=== PATIENT | male | born 1950 | race Caucasian/White ===

== ENCOUNTER 2016-11-17 10:23 | Observation (INO) | payer OTHER ==
[~2016-11-17] VITALS: Ht 182.9 cm; Wt 96.2 kg
--- NOTE | 2016-11-19 08:55 | HP ---
ADMIT: 11/17/2016 RM/LOC: 408 [facility] MR#: [id number] [address] [address] [address] [place] [address] History and Physical SEX: M AGE: 65 : 1950 DATE OF SERVICE: CHIEF COMPLAINT: Chest pain. HISTORY OF PRESENT ILLNESS: A 65-year-old male, sent over by the [facility] since they were on diversion. He had chest pain, was given nitroglycerin there, he is not certain if it helped. By the time he got to our ER, his pain was gone. EKG showed right bundle-branch block. Initial enzymes were negative. He describes the chest pain as substernal, generally achy feeling, sometimes sharp in nature. It occurred at home, lasted about 45 minutes. He is being admitted at this time for chest pain to trend enzymes, to rule out acute coronary syndrome. He denies having any history of any coronary artery disease. He does state he has had 2 strokes, the last one was September of 2014. He was hospitalized in [facility] for a week. As far as the cause of stroke, he is not certain what was the cause of it, but they gave him a piece of paper, he presented the paper and it was an educational material of ischemic heart disease. Denies ever having had a heart catheterization or any heart attacks. As far as his chest pain, he said he has had some episodes on and off for last several months, much more minor, only lasted a minute or two. This one lasted for 45 minutes. It was associated with nausea, but no vomiting. He was not short of breath or diaphoretic with it. He states he is chronically short of breath. Significant risk factors include severe COPD, oxygen dependent and history of tobacco abuse. PAST MEDICAL HISTORY: He has had a gastroscopy, had chest tubes placed in 2013. Hospitalized last in 2014 at [facility] with strokes, he has had 2 strokes. He has been on long-term oxygen for COPD. He has a prior history of tobacco abuse. ALLERGIES: NONE. CURRENT MEDICATIONS: Include: 1. Albuterol DuoNeb nebulizer. 2. Fosamax 70 mg daily. 3. Lipitor 40 mg at bedtime. 4. Stool softener. 5. Budesonide inhaler. 6. Plavix 75 mg daily. 7. Diclofenac 25 mg b.i.d. p.r.n. 8. Diltiazem 180 mg one daily. 9. Neurontin 300 mg b.i.d. 10.Hydrocodone p.r.n. 11.Magnesium citrate p.r.n. 12.Milk of magnesia p.r.n. 13.Protonix 40 mg daily. 14.Potassium 20 mEq daily. ADMIT: 11/17/2016 RM/LOC: 408 [facility] MR#: [id number] [facility] [address] [address] [address] [place] [address] History and Physical SEX: M AGE: 65 : 1950 15.Prednisone intermittently for his COPD. 16.Flomax 0.4 mg daily. 17.Tiotropium 18 mcg capsule inhaled daily. FAMILY HISTORY: Noncontributory. SOCIAL HISTORY: He is retired. Prior history of tobacco abuse. OTHER MEDICAL ISSUES: Include history of chronic granulomatous pulmonary disease, no lung cancer. History of COPD, oxygen dependent. History of gastroesophageal reflux; hyperlipidemia; previous stroke, exact etiology of stroke not apparent at this time. REVIEW OF SYSTEMS: Negative other than noted above. PHYSICAL EXAM: GENERAL: 65-year-old male, appears older stated age. VITAL SIGNS: In the emergency room were stable. BP is 120/78, respiratory rate 22, temp 98.4, O2 saturation 94% on oxygen. HEENT: Eyes PERRLA. EOMs intact. TMs not seen. Throat is moist, not inflamed. NECK: Supple. No lymphadenopathy. LUNGS: Showed decreased breath sounds but no rales, rhonchi, or wheezes. No respiratory distress. No retractions. HEART: Regular rate. No murmur. Chest wall is nontender. ABDOMEN: Soft, organomegaly, or tenderness. : Rectal deferred. EXTREMITIES: No clubbing, cyanosis, or edema. LABORATORY DATA: Initial CBC and CMP are normal. Initial cardiac enzymes are normal. EKG shows right bundle-branch block. DIAGNOSTIC IMPRESSION: 1. Atypical chest pain, rule out coronary syndrome. 2. Chronic obstructive pulmonary disease, oxygen dependent. 3. 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 4. Osteoporosis. 5. Gastroesophageal reflux disease. 6. Tobacco abuse. PLAN: We will trend EKG, enzymes, place on telemetry monitoring. Henrry Ortega MD/ zhou JOB #: [id number] CC: Henrry Ortega, Attending Physician ADMIT: 11/17/2016 RM/LOC: 408 [facility] MR#: [id number] [facility] [address] [address] [address] [place] [address] History and Physical SEX: M AGE: 65 : 1950 [facility] Physician, Family Physician
[2016-11-20] MEDS ORDERED: ACCUNEB DP0.63 MG/3 IH (07:16)
[2016-11-20] MEDS ORDERED: PROVENTIL HFA6.7 GM IH (07:16)
[2016-11-20] MEDS ORDERED: FOSAMAX70 MG PO (07:17)
[2016-11-20] MEDS ORDERED: SYMBICORT80 MCG/6.9 IH (07:17)
[2016-11-20] MEDS ORDERED: LIPITOR DPS20 MG PO (07:17)
[2016-11-20] MEDS ORDERED: PLAVIX75 MG PO (07:18)
[2016-11-20] MEDS ORDERED: CALCIPOTRIENE120 G1 TP (07:18)
[2016-11-20] MEDS ORDERED: VITAMIN D-32000 UNI1 PO (07:18)
[2016-11-20] MEDS ORDERED: [UNRECOGNIZED DRUG - CODE] TP (07:19)
[2016-11-20] MEDS ORDERED: ZIPSOR25 MG PO (07:19)
[2016-11-20] MEDS ORDERED: SENOKOT S1 TAB PO (07:20)
[2016-11-20] MEDS ORDERED: NORCO 5-325 TA1 EACH PO ×2 (07:20)
[2016-11-20] MEDS ORDERED: NEURONTIN DPS300 MG PO (07:20)
[2016-11-20] MEDS ORDERED: PROTONIX40 MG PO (07:21)
[2016-11-20] MEDS ORDERED: POTASSIUM CHLO20 ME2 PO (07:21)
[2016-11-20] MEDS ORDERED: MILK OF MAGNESI10 ML PO (07:21)
[2016-11-20] MEDS ORDERED: FLOMAX DPS0.4 MG PO (07:22)
[2016-11-20] MEDS ORDERED: MAALOX DPS30 ML PO (07:22)
[2016-11-20] MEDS ORDERED: SPIRIVA18 MCG IH (07:22)
[2016-11-20] MEDS ORDERED: COLACE-DPS100 MG PO (07:22)
[2016-11-20] MEDS ORDERED: SENOKOT DPS8.6 MG PO (07:23)
[2016-11-20] MEDS ORDERED: TYLENOL DPS325 MG PO (07:23)
--- NOTE | 2016-11-20 08:22 | ER ---
ADMIT: 11/17/2016 RM/LOC: ER [facility] MR#: [id number] [address] [facility] [place], [place] [address] [address] K[address] [place] [address] Emergency Room Report SEX: M AGE: 65 : 1950 DATE: 11/17/2016 TIME: 1023 hours. Please refer to my T-sheet for complete H and P. HISTORY OF PRESENT ILLNESS: Briefly, the patient is a 65-year-old, sent from the [facility] for chest pain. He was over there, had left-sided severe chest pain. He has severe COPD, cardiac disease. He still smokes a pack a day. High cholesterol, high blood pressure, history of CVA. He is having no pain now, it only lasted a little until they gave him an aspirin. PHYSICAL EXAMINATION: VITAL SIGNS: Blood pressure 97/55, pulse 80, respirations 16, temp 98.1, sat 95% on 2 L. GENERAL: No acute distress. HEENT: Grossly normal. LUNGS: Slightly coarse with expiratory wheezes. Prolonged output. ABDOMEN: Soft. SKIN: No rash. EXTREMITIES: Grossly normal. NEUROLOGIC: Alert and oriented, nonfocal. EMERGENCY DEPARTMENT COURSE: EKG was sinus rhythm, rate 80, no changes. Chest x-ray showed large amount of blood, could not exclude a normal thorax. We did a CTA of the chest, revealed no PE, multiple blebs, and COPD. His CBC is normal except hemoglobin 13.9. Chemistries normal. Cardiac enzymes negative. He remained stable. Pain free. I talked to Dr. Ortega. We will admit to the hospital after the [facility] says they are on diversion and have no beds. ASSESSMENT: 1. Chest pain. 2. Chronic obstructive pulmonary disease. 3. Nicotine abuse. PLAN: Admit to the hospital. Enrique Rossi MD/ zhou JOB #: [id number] CC: Enrique Rossi MD, Attending Physician [facility] Physician, Family Physician
[2017-03-24] MEDS ORDERED: [UNRECOGNIZED DRUG - OTHER] TP (14:37)
[2017-03-24] MEDS ORDERED: LANOXIN125 MCG PO (14:37)
== END 2016-11-18 10:25 | disposition home or self-care (01) ==
LOC: ER 10:23 → 4PCU 12:30
PROVIDERS: ADMIT Family Medicine
DX: R07.89 Other chest pain (principal); J44.9 Chronic obstructive pulmonary disease, unspecified; M81.0 Age-related osteoporosis without current pathological fracture; K21.9 Gastro-esophageal reflux disease without esophagitis; Z86.73 Personal history of transient ischemic attack (TIA), and cerebral infarction without residual deficits; Z79.899 Other long term (current) drug therapy; Z87.891 Personal history of nicotine dependence; Z98.890 Other specified postprocedural states